=== PATIENT | female | born 2000 | race Caucasian/White ===

== ENCOUNTER 2022-04-21 15:21 | Emergency (ER) | payer OTHER ==
[~2022-04-21] VITALS: Ht 162.6 cm; Wt 77.3 kg
[2022-04-21 16:00] VITALS: TEMP 98.5
[2022-04-21 18:17] VITALS: BP 141/71; PULSE 73
[2022-04-25] MEDS ORDERED: LEXAPRO 10MG10 MG PO (09:50)
[2022-04-25] MEDS ORDERED: ZYRTEC5 MG PO (09:51)
[2022-04-25] MEDS ORDERED: MOTRIN 200200 MG/TAB PO (09:52)
[2022-04-25] MEDS ORDERED: NORCO 325 MG-51 TAB PO ×2 (09:53→12:39)
[2022-04-25] MEDS ORDERED: CEPHALEXIN500 M1 PO (12:39)
[2022-04-25] MEDS ORDERED: ASPIRIN 81M81 MG/TA2 PO (12:41)
== END 2022-04-21 18:17 | disposition home or self-care (01) ==
LOC: COL.ER 15:21
DX: S82.65XA Nondisplaced fracture of lateral malleolus of left fibula, initial encounter for closed fracture (principal); Z28.310 Unvaccinated for COVID-19; W10.9XXA Fall (on) (from) unspecified stairs and steps, initial encounter; X50.1XXA Overexertion from prolonged static or awkward postures, initial encounter

== ENCOUNTER → 2022-04-25 | Day surgery (SDC) | payer OTHER ==
[2022-04-25] VITALS (7 sets, daily range): BP systolic 108–119; BP diastolic 48–70; PULSE 61–84; TEMP 97.4–98
[~2022-04-25] VITALS: Ht 175 cm; Wt 79.5 kg
[~2022-04-25] MED LIST: ASPIRIN 81M81 MG/TA2 PO; CEPHALEXIN500 M1 PO; LEXAPRO 10MG10 MG PO; MOTRIN 200200 MG/TAB PO; NORCO 325 MG-51 TAB PO; ZYRTEC5 MG PO
--- NOTE | 2022-04-25 13:20 | NUR ---
REPORT RECEIVED FROM [facility]; PATIENT BROUGHT BACK TO ROOM 1 AFTER ORIF OF LEFT FIBULA. PATIENT WAS ALERT AND ORIENTED AND HAD NO COMPLAINTS OF PAIN. VITAL SIGNS WERE WITHIN NORMAL LIMITS AND PATIENT IS RESTING IN BED WITH HER MOTHER IN THE ROOM.
== END ==
LOC: SDCO 08:56
DX: S82.822A Torus fracture of lower end of left fibula, initial encounter for closed fracture (principal); S82.62XA Displaced fracture of lateral malleolus of left fibula, initial encounter for closed fracture; W10.9XXA Fall (on) (from) unspecified stairs and steps, initial encounter; Y93.9 Activity, unspecified; Y92.9 Unspecified place or not applicable
CPT/HCPCS: C1713; J0690; J1100; J2250; J2405; J2704; J3010; J7120; L4386